=== PATIENT | male | born 1960 | race Caucasian/White ===

== ENCOUNTER 2022-06-14 07:29 | Inpatient (IN) | payer MEDICAID, SELFPAY ==
[2022-06-14] VITALS (14 sets, daily range): BP systolic 118–169; BP diastolic 67–102
[~2022-06-14] VITALS: Ht 175.3 cm; Wt 83.3 kg
[2022-06-14] MEDS ORDERED: ISOVUE-370 76% 100ML VIAL As Ordered ONE (08:29)
[2022-06-14 08:39] LABS: BASO # 0.1 10^3/uL (0.0-0.2); BASO % 0.6 % (0.0-1.0); EOS # 0.1 10^3/uL (0.0-0.5); EOS % 1.1 % (0.0-3.0); HEMATOCRIT 46.1 % (42.0-52.0); HEMOGLOBIN 15.6 g/dl (13.5-17.5); LYMPH # 2.2 10^3/uL (1.5-5.0); LYMPH % 19.1 % (24.0-44.0); MEAN CORPUSCULAR HEMOGLOBIN 32.1 pg (27.0-33.0); MEAN CORPUSCULAR HGB CONC 33.8 g/dl (32.0-36.5); MEAN CORPUSCULAR VOLUME 94.9 fl (80.0-96.0); MONO # 1.1 10^3/uL (0.0-0.8); MONO % 10.2 % (2.0-8.0); NEUTROPHILS # 7.7 10^3/uL (1.5-8.5); NEUTROPHILS % 68.5 % (36.0-66.0); PLATELET COUNT, AUTOMATED 473 10^3/uL (150-450); RED BLOOD COUNT 4.86 10^6/uL (4.30-6.10); WHITE BLOOD COUNT 11.2 10^3/uL (4.0-10.0)
[2022-06-14 09:05] LABS: RSV AMPLIFICATION NEGATIVE (NEGATIVE)
[2022-06-14] MEDS ORDERED: dexameTHASONE 20MG/5ML VIAL (J1100 PER 1MG) IV ONE (09:05)
[2022-06-14 09:06] LABS: ALBUMIN 3.5 GM/DL (3.2-5.2); ALT/SGPT 22 U/L (12-78); BILIRUBIN,DIRECT 0.2 MG/DL (0.0-0.2); BLOOD UREA NITROGEN 17 MG/DL (7-18); CALCIUM LEVEL 9.1 MG/DL (8.8-10.2); CARBON DIOXIDE LEVEL 24 MEQ/L (21-32); CHLORIDE LEVEL 107 MEQ/L (98-107); CREATININE FOR GFR 0.78 MG/DL (0.70-1.30); GLOMERULAR FILTRATION RATE > 60.0 (>49); GLUCOSE, FASTING 107 MG/DL (70-100); NT-PRO BNP 34 PG/ML (<125); POTASSIUM SERUM 4.4 MEQ/L (3.5-5.1); SODIUM LEVEL 138 MEQ/L (136-145); TOTAL PROTEIN 7.7 GM/DL (6.4-8.2)
[2022-06-14] MEDS ORDERED: dexameTHASONE 4 MG/ML 1ML VIAL (J1100 PER 1MG) As Ordered ONE (10:00)
[2022-06-14] MEDS ORDERED: ONDANSETRON 4MG 2ML VIAL As Ordered ONE (10:00)
[2022-06-14] MEDS ORDERED: PHENYLEPHRINE 0.5% NASAL SPRAY 15 ML As Ordered ONE (10:01)
[2022-06-14] MEDS ORDERED: CETACAINE SPRAY 5GM As Ordered ONE (10:01)
[2022-06-14] MEDS ORDERED: LIDOCAINE W/EPINEPHRINE 1% 20ML VIAL As Ordered ONE ×2 (10:01→10:33)
[2022-06-14] MEDS ORDERED: IBUP80TA PO (10:12)
[2022-06-14] MEDS ORDERED: UNASYN 3GM VIAL As Ordered ONE (10:14)
[2022-06-14] MEDS ORDERED: GLYCOPYRROLATE INJ 0.2 MG/ML 2 ML VIAL As Ordered ONE (10:14)
[2022-06-14] MEDS ORDERED: fentaNYL 100 MCG/2 ML INJECTION As Ordered ONE (10:15)
[2022-06-14] MEDS ORDERED: KETAMINE HCL 200 MG/20 ML VIAL As Ordered ONE (10:15)
[2022-06-14] MEDS ORDERED: MIDAZOLAM INJ 2MG/2ML VIAL (J2250 PER 1MG) As Ordered ONE (10:15)
[2022-06-14] MEDS ORDERED: HOME MED LIST COMPLETE! XX SCH (10:15)
[2022-06-14] MEDS ORDERED: ACETAMINOPHEN 1000MG 100ML IV BTL (OFIRMEV) (J0131 PER 10MG) As Ordered ONE (10:19)
[2022-06-14] MEDS ORDERED: propofoL 200 MG/20 ML VIAL As Ordered ONE (10:20)
[2022-06-14] MEDS ORDERED: OXYMETAZOLINE 0.05% NASAL SPRAY (AFRIN) As Ordered ONE (10:29)
[2022-06-14] MEDS ORDERED: METHYLENE BLUE 0.5% (5MG/ML) 10 ML AMP (PROVAYBLUE) As Ordered ONE (10:29)
[2022-06-14] MEDS ORDERED: SUGAMMADEX SODIUM 500 MG/5 ML VIAL (BRIDION) As Ordered ONE (11:37)
[2022-06-14] MEDS ORDERED: PHENYLephrine 500MCG 5ML (100MCG/ML) SYRINGE As Ordered ONE (11:46)
[2022-06-14] MEDS ORDERED: ONDANSETRON 4MG 2ML VIAL IV PRN ×2 (12:05→14:10)
[2022-06-14] MEDS ORDERED: METOCLOPRAMIDE INJ 10MG/2ML VIAL (J2765 PER 1) IV PRN (12:05)
[2022-06-14] MEDS ORDERED: LR 1,000 ML IV SCH (12:05)
[2022-06-14] MEDS: fentaNYL 100 MCG/2 ML INJECTION IV PRN ×4 (12:21→12:56)
[2022-06-14] MEDS: hydrALAZINE 20MG/ML 1ML VIAL (J0360 PER 20MG) IV PRN ×4 (12:33→12:56)
[2022-06-14] MEDS ORDERED: hydrALAZINE 20MG/ML 1ML VIAL (J0360 PER 20MG) As Ordered ONE (12:34)
[2022-06-14] MEDS: HYDROMORPHONE HCL 0.5 MG/ 0.5 ML SYRINGE (J1170 PER 1) IV PRN ×2 (13:15→13:32)
[2022-06-14] MEDS ORDERED: HYDROcodone/APAP LIQUID 7.5-325MG 15ML UDC (LORTAB ELIXIR) PO PRN (14:05)
[2022-06-14] MEDS ORDERED: MORPHINE 2 MG/ML 1ML VIAL IV PRN (14:10)
[2022-06-14] MEDS: LR 1,000 ML IV SCH (15:00)
[2022-06-14] MEDS ORDERED: KETOROLAC 30 MG/ML 1ML VIAL IV PRN ×2 (15:05)
[2022-06-14] MEDS: ceFAZolin SOD 1 GM in D5W MINI-BAG PLUS 50 ML IV SCH (18:31)
[2022-06-15] VITALS (11 sets, daily range): BP systolic 93–165; BP diastolic 50–90
[2022-06-15] MEDS: LR 1,000 ML IV SCH (02:33)
[2022-06-15] MEDS: ceFAZolin SOD 1 GM in D5W MINI-BAG PLUS 50 ML IV SCH ×3 (02:33→20:08)
[2022-06-15 05:14] LABS: BASO % 0.1 % (0.0-1.0); EOS % 0.1 % (0.0-3.0); HEMATOCRIT 40.9 % (42.0-52.0); HEMOGLOBIN 13.9 g/dl (13.5-17.5); LYMPH # 1.2 10^3/uL (1.5-5.0); LYMPH % 4.4 % (24.0-44.0); MEAN CORPUSCULAR HEMOGLOBIN 31.8 pg (27.0-33.0); MEAN CORPUSCULAR VOLUME 93.6 fl (80.0-96.0); MONO % 8.1 % (2.0-8.0); NEUTROPHILS % 86.8 % (36.0-66.0); PLATELET COUNT, AUTOMATED 403 10^3/uL (150-450); RED BLOOD COUNT 4.37 10^6/uL (4.30-6.10); WHITE BLOOD COUNT 26.5 10^3/uL (4.0-10.0)
[2022-06-15 05:31] LABS: BLOOD UREA NITROGEN 23 MG/DL (7-18); CALCIUM LEVEL 8.4 MG/DL (8.8-10.2); CARBON DIOXIDE LEVEL 28 MEQ/L (21-32); CHLORIDE LEVEL 105 MEQ/L (98-107); CREATININE FOR GFR 0.84 MG/DL (0.70-1.30); GLOMERULAR FILTRATION RATE > 60.0 (>49); GLUCOSE, FASTING 138 MG/DL (70-100); POTASSIUM SERUM 4.2 MEQ/L (3.5-5.1); SODIUM LEVEL 137 MEQ/L (136-145)
[2022-06-15 07:17] LABS: MONO # 2.2 10^3/uL (0.0-0.8)
[2022-06-15] MEDS ORDERED: KETOROLAC 30 MG/ML 1ML VIAL IV PRN (09:15)
[2022-06-15] MEDS ORDERED: NORCO, ANEXSIA 5/325MG TABLET (HYDROcodone/ACETAMINOPHEN) PO ONE (14:30)
[2022-06-15] MEDS: PERCOCET 5MG/325MG TAB PO PRN ×2 (17:49→20:09)
[2022-06-15] MEDS: ALBUTEROL SULFATE 2.5 MG/0.5 ML INH NEB SOLN NEB PRN (17:51)
[2022-06-15] MEDS: NICOTINE 21MG/24HR 1 EA TRANSDERMAL TD SCH (20:09)
[2022-06-15] MEDS: KETOROLAC 30 MG/ML 1ML VIAL IV PRN (23:06)
[2022-06-16] VITALS: BP 150/82
[2022-06-16 04:00] VITALS: BP 186/84
[2022-06-16] MEDS: ceFAZolin SOD 1 GM in D5W MINI-BAG PLUS 50 ML IV SCH ×3 (04:06→19:26)
[2022-06-16 05:48] LABS: BASO % 0.1 % (0.0-1.0); EOS % 0.1 % (0.0-3.0); HEMATOCRIT 40.2 % (42.0-52.0); HEMOGLOBIN 13.6 g/dl (13.5-17.5); LYMPH # 1.6 10^3/uL (1.5-5.0); LYMPH % 9.1 % (24.0-44.0); MEAN CORPUSCULAR HEMOGLOBIN 31.9 pg (27.0-33.0); MEAN CORPUSCULAR HGB CONC 33.8 g/dl (32.0-36.5); MEAN CORPUSCULAR VOLUME 94.4 fl (80.0-96.0); MONO % 9.6 % (2.0-8.0); NEUTROPHILS # 13.8 10^3/uL (1.5-8.5); NEUTROPHILS % 80.7 % (36.0-66.0); PLATELET COUNT, AUTOMATED 388 10^3/uL (150-450); RED BLOOD COUNT 4.26 10^6/uL (4.30-6.10); WHITE BLOOD COUNT 17.1 10^3/uL (4.0-10.0)
[2022-06-16 06:11] LABS: BLOOD UREA NITROGEN 19 MG/DL (7-18); CALCIUM LEVEL 8.5 MG/DL (8.8-10.2); CARBON DIOXIDE LEVEL 28 MEQ/L (21-32); CHLORIDE LEVEL 104 MEQ/L (98-107); GLOMERULAR FILTRATION RATE > 60.0 (>49); GLUCOSE, FASTING 101 MG/DL (70-100); POTASSIUM SERUM 3.8 MEQ/L (3.5-5.1); SODIUM LEVEL 136 MEQ/L (136-145)
[2022-06-16] MEDS: ALBUTEROL SULFATE 2.5 MG/0.5 ML INH NEB SOLN NEB PRN (06:31)
[2022-06-16 06:44] LABS: MONO # 1.6 10^3/uL (0.0-0.8)
[2022-06-16] MEDS: NORCO, ANEXSIA 5/325MG TABLET (HYDROcodone/ACETAMINOPHEN) PO PRN ×2 (07:56→20:23)
[2022-06-16 08:00] VITALS: BP 150/79
[2022-06-16 12:00] VITALS: BP 170/89
[2022-06-16] MEDS: PERCOCET 5MG/325MG TAB PO PRN (12:01)
[2022-06-16] MEDS: KETOROLAC 30 MG/ML 1ML VIAL IV PRN (14:55)
[2022-06-16 15:50] VITALS: BP 142/78
[2022-06-16 20:00] VITALS: BP 134/73
[2022-06-16] MEDS: NICOTINE 21MG/24HR 1 EA TRANSDERMAL TD SCH (20:24)
[2022-06-17] VITALS: BP 145/85
[2022-06-17] MEDS: ceFAZolin SOD 1 GM in D5W MINI-BAG PLUS 50 ML IV SCH ×3 (03:58→18:59)
[2022-06-17 04:00] VITALS: BP 154/83
[2022-06-17] MEDS: KETOROLAC 30 MG/ML 1ML VIAL IV PRN ×2 (04:04→15:26)
[2022-06-17 07:07] LABS: BASO % 0.3 % (0.0-1.0); EOS % 0.1 % (0.0-3.0); HEMATOCRIT 41.4 % (42.0-52.0); HEMOGLOBIN 13.9 g/dl (13.5-17.5); LYMPH # 1.6 10^3/uL (1.5-5.0); LYMPH % 10.8 % (24.0-44.0); MEAN CORPUSCULAR HGB CONC 33.6 g/dl (32.0-36.5); MEAN CORPUSCULAR VOLUME 95.2 fl (80.0-96.0); MONO # 1.4 10^3/uL (0.0-0.8); MONO % 8.9 % (2.0-8.0); NEUTROPHILS # 12.1 10^3/uL (1.5-8.5); NEUTROPHILS % 79.5 % (36.0-66.0); PLATELET COUNT, AUTOMATED 355 10^3/uL (150-450); RED BLOOD COUNT 4.35 10^6/uL (4.30-6.10); WHITE BLOOD COUNT 15.2 10^3/uL (4.0-10.0)
[2022-06-17] MEDS ORDERED: KETOROLAC 30 MG/ML 1ML VIAL IV ONE ×2 (07:35→07:45)
[2022-06-17] MEDS: PERCOCET 5MG/325MG TAB PO PRN (07:37)
[2022-06-17 07:42] LABS: BLOOD UREA NITROGEN 19 MG/DL (7-18); CALCIUM LEVEL 8.7 MG/DL (8.8-10.2); CARBON DIOXIDE LEVEL 26 MEQ/L (21-32); CHLORIDE LEVEL 105 MEQ/L (98-107); CREATININE FOR GFR 0.78 MG/DL (0.70-1.30); GLOMERULAR FILTRATION RATE > 60.0 (>49); GLUCOSE, FASTING 99 MG/DL (70-100); POTASSIUM SERUM 3.8 MEQ/L (3.5-5.1); SODIUM LEVEL 139 MEQ/L (136-145)
[2022-06-17 07:56] VITALS: BP 139/79
[2022-06-17 11:39] VITALS: BP 135/77
[2022-06-17] MEDS: NORCO, ANEXSIA 5/325MG TABLET (HYDROcodone/ACETAMINOPHEN) PO PRN ×2 (12:23→22:22)
[2022-06-17] MEDS ORDERED: MOM 30ML SUSPENSION UDC PO ONE (15:40)
[2022-06-17] MEDS ORDERED: SENOKOT S TAB PO PRN (15:40)
[2022-06-17] MEDS ORDERED: FLEET ENEMA PR PRN (15:40)
[2022-06-17] MEDS ORDERED: MOM 30ML SUSPENSION UDC PO PRN (15:40)
[2022-06-17] MEDS ORDERED: SENOKOT S TAB PO ONE (15:40)
[2022-06-17 16:27] VITALS: BP 138/75
[2022-06-17] MEDS: NICOTINE 21MG/24HR 1 EA TRANSDERMAL TD SCH (21:00)
[2022-06-17 21:30] VITALS: BP 159/80
[2022-06-18] VITALS (10 sets, daily range): BP systolic 129–162; BP diastolic 63–80; O2SAT 94–96
[2022-06-18] MEDS: ceFAZolin SOD 1 GM in D5W MINI-BAG PLUS 50 ML IV SCH ×3 (03:31→18:17)
[2022-06-18] MEDS: PERCOCET 5MG/325MG TAB PO PRN ×3 (03:32→22:43)
[2022-06-18 05:44] LABS: BASO % 0.3 % (0.0-1.0); EOS % 0.3 % (0.0-3.0); HEMATOCRIT 39.3 % (42.0-52.0); HEMOGLOBIN 13.3 g/dl (13.5-17.5); LYMPH # 1.4 10^3/uL (1.5-5.0); LYMPH % 11.7 % (24.0-44.0); MEAN CORPUSCULAR HEMOGLOBIN 32.2 pg (27.0-33.0); MEAN CORPUSCULAR HGB CONC 33.8 g/dl (32.0-36.5); MEAN CORPUSCULAR VOLUME 95.2 fl (80.0-96.0); MONO # 1.5 10^3/uL (0.0-0.8); NEUTROPHILS # 8.6 10^3/uL (1.5-8.5); NEUTROPHILS % 74.4 % (36.0-66.0); PLATELET COUNT, AUTOMATED 355 10^3/uL (150-450); RED BLOOD COUNT 4.13 10^6/uL (4.30-6.10); WHITE BLOOD COUNT 11.6 10^3/uL (4.0-10.0)
[2022-06-18 06:52] LABS: BLOOD UREA NITROGEN 21 MG/DL (7-18); CALCIUM LEVEL 8.6 MG/DL (8.8-10.2); CARBON DIOXIDE LEVEL 29 MEQ/L (21-32); CHLORIDE LEVEL 102 MEQ/L (98-107); CREATININE FOR GFR 0.83 MG/DL (0.70-1.30); GLOMERULAR FILTRATION RATE > 60.0 (>49); GLUCOSE, FASTING 117 MG/DL (70-100); POTASSIUM SERUM 3.9 MEQ/L (3.5-5.1); SODIUM LEVEL 136 MEQ/L (136-145)
[2022-06-18] MEDS ORDERED: MAGNESIUM CITRATE 300 ML BTL PO ONE (07:55)
[2022-06-18] MEDS ORDERED: KETOROLAC 30 MG/ML 1ML VIAL IV ONE (07:55)
[2022-06-18] MEDS: NORCO, ANEXSIA 5/325MG TABLET (HYDROcodone/ACETAMINOPHEN) PO PRN (16:39)
[2022-06-18] MEDS: NICOTINE 21MG/24HR 1 EA TRANSDERMAL TD SCH (21:00)
[2022-06-19] VITALS (25 sets, daily range): BP systolic 140–166; BP diastolic 73–88; O2SAT 91–96
[2022-06-19] MEDS: PERCOCET 5MG/325MG TAB PO PRN ×3 (03:00→23:45)
[2022-06-19] MEDS: ceFAZolin SOD 1 GM in D5W MINI-BAG PLUS 50 ML IV SCH ×3 (03:00→18:31)
[2022-06-19] MEDS: NORCO, ANEXSIA 5/325MG TABLET (HYDROcodone/ACETAMINOPHEN) PO PRN ×2 (06:54→18:32)
[2022-06-19 07:25] LABS: BASO # 0.1 10^3/uL (0.0-0.2); BASO % 0.4 % (0.0-1.0); EOS # 0.1 10^3/uL (0.0-0.5); EOS % 0.9 % (0.0-3.0); HEMATOCRIT 39.8 % (42.0-52.0); HEMOGLOBIN 13.4 g/dl (13.5-17.5); LYMPH # 1.7 10^3/uL (1.5-5.0); LYMPH % 13.2 % (24.0-44.0); MEAN CORPUSCULAR HEMOGLOBIN 31.8 pg (27.0-33.0); MEAN CORPUSCULAR HGB CONC 33.7 g/dl (32.0-36.5); MEAN CORPUSCULAR VOLUME 94.3 fl (80.0-96.0); MONO % 12.1 % (2.0-8.0); NEUTROPHILS # 9.4 10^3/uL (1.5-8.5); NEUTROPHILS % 73.1 % (36.0-66.0); PLATELET COUNT, AUTOMATED 365 10^3/uL (150-450); RED BLOOD COUNT 4.22 10^6/uL (4.30-6.10); WHITE BLOOD COUNT 12.9 10^3/uL (4.0-10.0)
[2022-06-19 07:52] LABS: BLOOD UREA NITROGEN 14 MG/DL (7-18); CALCIUM LEVEL 8.6 MG/DL (8.8-10.2); CARBON DIOXIDE LEVEL 29 MEQ/L (21-32); CHLORIDE LEVEL 102 MEQ/L (98-107); CREATININE FOR GFR 0.81 MG/DL (0.70-1.30); GLOMERULAR FILTRATION RATE > 60.0 (>49); GLUCOSE, FASTING 103 MG/DL (70-100); POTASSIUM SERUM 3.7 MEQ/L (3.5-5.1); SODIUM LEVEL 136 MEQ/L (136-145)
[2022-06-19 07:56] LABS: MONO # 1.6 10^3/uL (0.0-0.8)
[2022-06-19] MEDS ORDERED: HYDROMORPHONE HCL 0.5 MG/ 0.5 ML SYRINGE (J1170 PER 1) IV ONE (08:00)
[2022-06-19] MEDS ORDERED: KETOROLAC 30 MG/ML 1ML VIAL IV ONE (09:00)
[2022-06-19] MEDS: NICOTINE 21MG/24HR 1 EA TRANSDERMAL TD SCH (21:00)
[2022-06-20] VITALS (24 sets, daily range): BP systolic 145–173; BP diastolic 75–86; O2SAT 89–97
[2022-06-20] MEDS ORDERED: hydrALAZINE 20MG/ML 1ML VIAL (J0360 PER 20MG) IV STA (01:24)
[2022-06-20] MEDS ORDERED: hydrALAZINE 20MG/ML 1ML VIAL (J0360 PER 20MG) IV PRN (01:25)
[2022-06-20 01:44] LABS: BASO # 0.1 10^3/uL (0.0-0.2); BASO % 0.4 % (0.0-1.0); EOS # 0.1 10^3/uL (0.0-0.5); EOS % 0.6 % (0.0-3.0); HEMATOCRIT 40.5 % (42.0-52.0); HEMOGLOBIN 13.7 g/dl (13.5-17.5); LYMPH # 1.7 10^3/uL (1.5-5.0); LYMPH % 12.2 % (24.0-44.0); MEAN CORPUSCULAR HEMOGLOBIN 31.8 pg (27.0-33.0); MEAN CORPUSCULAR HGB CONC 33.8 g/dl (32.0-36.5); MONO % 12.7 % (2.0-8.0); NEUTROPHILS # 10.1 10^3/uL (1.5-8.5); NEUTROPHILS % 73.6 % (36.0-66.0); PLATELET COUNT, AUTOMATED 381 10^3/uL (150-450); RED BLOOD COUNT 4.31 10^6/uL (4.30-6.10); WHITE BLOOD COUNT 13.7 10^3/uL (4.0-10.0)
[2022-06-20 02:03] LABS: INR 1.06; PROTHROMBIN TIME 14.2 SECONDS (12.7-14.5)
[2022-06-20 02:04] LABS: MONO # 1.8 10^3/uL (0.0-0.8)
[2022-06-20] MEDS: ceFAZolin SOD 1 GM in D5W MINI-BAG PLUS 50 ML IV SCH ×3 (03:33→18:13)
[2022-06-20 07:06] LABS: BASO # 0.1 10^3/uL (0.0-0.2); BASO % 0.3 % (0.0-1.0); EOS % 0.2 % (0.0-3.0); HEMATOCRIT 42.8 % (42.0-52.0); HEMOGLOBIN 14.5 g/dl (13.5-17.5); LYMPH # 1.4 10^3/uL (1.5-5.0); LYMPH % 9.1 % (24.0-44.0); MEAN CORPUSCULAR HEMOGLOBIN 31.7 pg (27.0-33.0); MEAN CORPUSCULAR HGB CONC 33.9 g/dl (32.0-36.5); MEAN CORPUSCULAR VOLUME 93.4 fl (80.0-96.0); NEUTROPHILS # 11.7 10^3/uL (1.5-8.5); PLATELET COUNT, AUTOMATED 394 10^3/uL (150-450); RED BLOOD COUNT 4.58 10^6/uL (4.30-6.10); WHITE BLOOD COUNT 14.9 10^3/uL (4.0-10.0)
[2022-06-20] MEDS ORDERED: KETOROLAC 30 MG/ML 1ML VIAL IV ONE (07:30)
[2022-06-20] MEDS ORDERED: HYDROMORPHONE HCL 0.5 MG/ 0.5 ML SYRINGE (J1170 PER 1) IV ONE ×3 (07:30→15:05)
[2022-06-20 07:33] LABS: MONO # 1.6 10^3/uL (0.0-0.8)
[2022-06-20 07:34] LABS: BLOOD UREA NITROGEN 15 MG/DL (7-18); CALCIUM LEVEL 9.1 MG/DL (8.8-10.2); CARBON DIOXIDE LEVEL 26 MEQ/L (21-32); CHLORIDE LEVEL 101 MEQ/L (98-107); CREATININE FOR GFR 0.77 MG/DL (0.70-1.30); GLOMERULAR FILTRATION RATE > 60.0 (>49); GLUCOSE, FASTING 103 MG/DL (70-100); SODIUM LEVEL 137 MEQ/L (136-145)
[2022-06-20] MEDS: NICOTINE 21MG/24HR 1 EA TRANSDERMAL TD SCH (20:12)
[2022-06-20] MEDS: BACTRIM 160MG/800MG DS TAB PO SCH (20:12)
[2022-06-20] MEDS: PERCOCET 5MG/325MG TAB PO PRN (20:16)
[2022-06-21] VITALS (18 sets, daily range): BP systolic 132–169; BP diastolic 73–99; O2SAT 89–98
[2022-06-21] MEDS: PERCOCET 5MG/325MG TAB PO PRN (01:33)
[2022-06-21] MEDS: ceFAZolin SOD 1 GM in D5W MINI-BAG PLUS 50 ML IV SCH ×2 (03:40→11:33)
[2022-06-21 05:45] LABS: BASO % 0.3 % (0.0-1.0); EOS # 0.1 10^3/uL (0.0-0.5); EOS % 0.3 % (0.0-3.0); HEMATOCRIT 40.5 % (42.0-52.0); HEMOGLOBIN 13.8 g/dl (13.5-17.5); LYMPH # 1.7 10^3/uL (1.5-5.0); LYMPH % 10.9 % (24.0-44.0); MEAN CORPUSCULAR HEMOGLOBIN 31.7 pg (27.0-33.0); MEAN CORPUSCULAR HGB CONC 34.1 g/dl (32.0-36.5); MEAN CORPUSCULAR VOLUME 93.1 fl (80.0-96.0); MONO % 12.1 % (2.0-8.0); NEUTROPHILS # 11.6 10^3/uL (1.5-8.5); NEUTROPHILS % 75.9 % (36.0-66.0); PLATELET COUNT, AUTOMATED 362 10^3/uL (150-450); RED BLOOD COUNT 4.35 10^6/uL (4.30-6.10); WHITE BLOOD COUNT 15.2 10^3/uL (4.0-10.0)
[2022-06-21 06:10] LABS: BLOOD UREA NITROGEN 21 MG/DL (7-18); CALCIUM LEVEL 8.5 MG/DL (8.8-10.2); CARBON DIOXIDE LEVEL 26 MEQ/L (21-32); CHLORIDE LEVEL 102 MEQ/L (98-107); CREATININE FOR GFR 0.86 MG/DL (0.70-1.30); GLOMERULAR FILTRATION RATE > 60.0 (>49); GLUCOSE, FASTING 112 MG/DL (70-100); SODIUM LEVEL 135 MEQ/L (136-145)
[2022-06-21 06:32] LABS: MONO # 1.8 10^3/uL (0.0-0.8)
[2022-06-21] MEDS ORDERED: HYDROMORPHONE HCL 0.5 MG/ 0.5 ML SYRINGE (J1170 PER 1) IV ONE (07:05)
[2022-06-21] MEDS: BACTRIM 160MG/800MG DS TAB PO SCH ×2 (08:01→20:35)
[2022-06-21] MEDS ORDERED: MAGNESIUM CITRATE 300 ML BTL PO ONE (12:00)
[2022-06-21] MEDS: ALBUTEROL SULFATE 2.5 MG/0.5 ML INH NEB SOLN NEB PRN (16:15)
[2022-06-21] MEDS ORDERED: methylPREDNISolone 125MG 2ML VIAL IV ONE (16:55)
[2022-06-21] MEDS ORDERED: IPRATROPIUM 0.5MG/ALBUTEROL 2.5MG INH SOL UD 3ML (DUONEB) NEB ONE (17:00)
[2022-06-21] MEDS ORDERED: IPRATROPIUM 0.5MG/ALBUTEROL 2.5MG INH SOL UD 3ML (DUONEB) NEB PRN (17:00)
[2022-06-21] MEDS: NORCO, ANEXSIA 5/325MG TABLET (HYDROcodone/ACETAMINOPHEN) PO PRN (17:05)
[2022-06-21] MEDS: guaiFENesin ER 600 MG TAB PO SCH (17:21)
[2022-06-21] MEDS: LOSARTAN 25 MG TAB PO SCH (17:21)
[2022-06-21] MEDS: SYMBICORT 80/4.5MCG INHALER 6GM INH SCH (19:44)
[2022-06-21] MEDS: IPRATROPIUM 0.5MG/ALBUTEROL 2.5MG INH SOL UD 3ML (DUONEB) NEB SCH ×2 (19:44→23:46)
[2022-06-21] MEDS: NICOTINE 21MG/24HR 1 EA TRANSDERMAL TD SCH (20:36)
[2022-06-22] VITALS (7 sets, daily range): BP systolic 132–172; BP diastolic 71–83; O2SAT 95–98
[2022-06-22] MEDS: IPRATROPIUM 0.5MG/ALBUTEROL 2.5MG INH SOL UD 3ML (DUONEB) NEB SCH ×3 (03:27→11:35)
[2022-06-22] MEDS: methylPREDNISolone 40MG 1ML VIAL IV SCH ×5 (05:15→23:38)
[2022-06-22 06:58] LABS: BASO % 0.2 % (0.0-1.0); HEMOGLOBIN 14.3 g/dl (13.5-17.5); LYMPH # 0.9 10^3/uL (1.5-5.0); LYMPH % 7.1 % (24.0-44.0); MEAN CORPUSCULAR HEMOGLOBIN 31.5 pg (27.0-33.0); MEAN CORPUSCULAR VOLUME 92.5 fl (80.0-96.0); MONO # 0.6 10^3/uL (0.0-0.8); MONO % 4.7 % (2.0-8.0); NEUTROPHILS # 10.9 10^3/uL (1.5-8.5); NEUTROPHILS % 87.4 % (36.0-66.0); PLATELET COUNT, AUTOMATED 415 10^3/uL (150-450); RED BLOOD COUNT 4.54 10^6/uL (4.30-6.10); WHITE BLOOD COUNT 12.5 10^3/uL (4.0-10.0)
[2022-06-22 07:40] LABS: BLOOD UREA NITROGEN 22 MG/DL (7-18); GLUCOSE, FASTING 161 MG/DL (70-100)
[2022-06-22 07:41] LABS: CARBON DIOXIDE LEVEL 28 mmol/L (20-29); CHLORIDE LEVEL 100 MEQ/L (98-107); CREATININE FOR GFR 0.99 MG/DL (0.70-1.30); GLOMERULAR FILTRATION RATE > 60.0 (>49); POTASSIUM SERUM 4.9 MEQ/L (3.5-5.1); SODIUM LEVEL 136 MEQ/L (136-145)
[2022-06-22] MEDS ORDERED: TIOTROPIUM INHALER/CAPSULE (SPIRIVA) INH SCH (08:00)
[2022-06-22] MEDS: SYMBICORT 80/4.5MCG INHALER 6GM INH SCH ×2 (08:02→19:19)
[2022-06-22] MEDS: guaiFENesin ER 600 MG TAB PO SCH ×2 (08:14→20:22)
[2022-06-22] MEDS: LOSARTAN 25 MG TAB PO SCH ×2 (08:14→20:23)
[2022-06-22] MEDS: BACTRIM 160MG/800MG DS TAB PO SCH ×2 (08:16→20:23)
[2022-06-22] MEDS ORDERED: ISOVUE-370 76% 100ML VIAL As Ordered ONE (18:02)
[2022-06-22] MEDS: NICOTINE 21MG/24HR 1 EA TRANSDERMAL TD SCH (20:23)
[2022-06-23] VITALS (15 sets, daily range): BP systolic 133–162; BP diastolic 64–82; O2SAT 89–97
[2022-06-23 04:46] LABS: HEMATOCRIT 42.3 % (42.0-52.0); HEMOGLOBIN 14.4 g/dl (13.5-17.5); MEAN CORPUSCULAR HEMOGLOBIN 31.7 pg (27.0-33.0); MEAN CORPUSCULAR VOLUME 93.2 fl (80.0-96.0); RED BLOOD COUNT 4.54 10^6/uL (4.30-6.10); WHITE BLOOD COUNT 26.5 10^3/uL (4.0-10.0)
[2022-06-23 05:07] LABS: PLATELET COUNT, AUTOMATED 516 10^3/uL (150-450)
[2022-06-23] MEDS: methylPREDNISolone 40MG 1ML VIAL IV SCH ×3 (05:17→18:21)
[2022-06-23] MEDS: SYMBICORT 80/4.5MCG INHALER 6GM INH SCH ×2 (07:34→19:23)
[2022-06-23 08:20] LABS: HEMATOCRIT 41.8 % (42.0-52.0); HEMOGLOBIN 14.3 g/dl (13.5-17.5); MEAN CORPUSCULAR HEMOGLOBIN 31.9 pg (27.0-33.0); MEAN CORPUSCULAR HGB CONC 34.2 g/dl (32.0-36.5); MEAN CORPUSCULAR VOLUME 93.3 fl (80.0-96.0); PLATELET COUNT, AUTOMATED 520 10^3/uL (150-450); RED BLOOD COUNT 4.48 10^6/uL (4.30-6.10); WHITE BLOOD COUNT 25.6 10^3/uL (4.0-10.0)
[2022-06-23] MEDS: LOSARTAN 25 MG TAB PO SCH ×2 (09:35→20:17)
[2022-06-23] MEDS: BACTRIM 160MG/800MG DS TAB PO SCH ×2 (09:35→20:16)
[2022-06-23] MEDS: guaiFENesin ER 600 MG TAB PO SCH ×2 (09:35→20:16)
[2022-06-23] MEDS: NICOTINE 21MG/24HR 1 EA TRANSDERMAL TD SCH (20:17)
[2022-06-24] MEDS: methylPREDNISolone 40MG 1ML VIAL IV SCH ×3 (00:05→12:00)
[2022-06-24 06:00] VITALS: BP 148/85
[2022-06-24 06:23] LABS: HEMOGLOBIN 13.1 g/dl (13.5-17.5); MEAN CORPUSCULAR HEMOGLOBIN 31.6 pg (27.0-33.0); MEAN CORPUSCULAR HGB CONC 33.6 g/dl (32.0-36.5); PLATELET COUNT, AUTOMATED 505 10^3/uL (150-450); RED BLOOD COUNT 4.15 10^6/uL (4.30-6.10); WHITE BLOOD COUNT 25.8 10^3/uL (4.0-10.0)
[2022-06-24 06:44] LABS: BLOOD UREA NITROGEN 26 MG/DL (7-18); CALCIUM LEVEL 8.7 MG/DL (8.8-10.2); CARBON DIOXIDE LEVEL 28 MEQ/L (21-32); CHLORIDE LEVEL 101 MEQ/L (98-107); CREATININE FOR GFR 0.86 MG/DL (0.70-1.30); GLOMERULAR FILTRATION RATE > 60.0 (>49); GLUCOSE, FASTING 133 MG/DL (70-100); POTASSIUM SERUM 4.3 MEQ/L (3.5-5.1); SODIUM LEVEL 134 MEQ/L (136-145)
[2022-06-24] MEDS: SYMBICORT 80/4.5MCG INHALER 6GM INH SCH (07:14)
[2022-06-24] MEDS: guaiFENesin ER 600 MG TAB PO SCH (09:29)
[2022-06-24 09:30] VITALS: BP 131/74
[2022-06-24] MEDS: LOSARTAN 25 MG TAB PO SCH (09:30)
[2022-06-24] MEDS: BACTRIM 160MG/800MG DS TAB PO SCH (09:30)
[2022-06-24] MEDS ORDERED: SYMB80INH INH (09:46)
[2022-06-24] MEDS ORDERED: COZA1TAB PO (09:46)
[2022-06-24] MEDS ORDERED: PRED10TA2 PO (09:46)
[2022-06-24] MEDS ORDERED: MUCI600T31 PO (09:46)
[2022-06-24] MEDS ORDERED: BACTDSTA PO (09:46)
[2022-06-24] MEDS ORDERED: ALBU8.5H INH (09:48)
== END 2022-06-24 13:15 | disposition home health service (06) | DRG 98 ==
LOC: M ED 07:29 → M ED INP 10:19 → M ICU 13:24 → M PCU 06-15 15:53 → M MSPAV 06-23 22:34
PROVIDERS: ADMIT Otolaryngology; ATTEND Internal Medicine
PROC: 0CBS0ZX Excision of Larynx, Open Approach, Diagnostic (ICD-10-PCS; 2022-06-14)
PROC: 0B110F4 Bypass Trachea to Cutaneous with Tracheostomy Device, Open Approach (ICD-10-PCS; principal; 2022-06-14 10:00)
PROC: 0CJS8ZZ Inspection of Larynx, Via Natural or Artificial Opening Endoscopic (ICD-10-PCS; 2022-06-20)
DX: C32.0 Malignant neoplasm of glottis (principal); J96.01 Acute respiratory failure with hypoxia; J44.1 Chronic obstructive pulmonary disease with (acute) exacerbation; R04.2 Hemoptysis; F17.210 Nicotine dependence, cigarettes, uncomplicated; K59.00 Constipation, unspecified; J45.909 Unspecified asthma, uncomplicated

== ENCOUNTER 2022-07-01 07:46 | Outpatient (RCR) | payer MEDICAID ==
[~2022-07-01 07:46] MED LIST: ALBU8.5H INH; BACTDSTA PO; COZA1TAB PO; IBUP80TA PO; MUCI600T31 PO; PRED10TA2 PO; SYMB80INH INH
== END 2022-07-28 ==
LOC: M ONCR 07:46
PROVIDERS: ATTEND General Practice
DX: C32.0 Malignant neoplasm of glottis (principal)

== ENCOUNTER 2022-07-08 12:48 | Outpatient (RCR) | payer MEDICAID | END 2022-07-28 | LOC: M ST 12:48 | PROVIDERS: ATTEND Internal Medicine | DX: C32.0 Malignant neoplasm of glottis (principal); Z93.0 Tracheostomy status ==